=== PATIENT | male | born 1950 | race Caucasian/White ===

== ENCOUNTER 2020-12-08 22:24 | Emergency (ER) | payer MEDICARE ==
[2020-12-08 22:35] VITALS: RESP 18
[2020-12-08] MEDS ORDERED: HYDROmorphone 1 MG/ML 1 ML SYRINGE IVP STA (22:41)
[2020-12-08] MEDS ORDERED: ONDANSETRON 4 MG/2 ML VIAL IVP STA (23:03)
[2020-12-08] MEDS ORDERED: SODIUM CHLORIDE 0.9% 1,000 ML IV STA (23:03)
[2020-12-08] MEDS ORDERED: DIPH,PERTUS(ACELL)TETVAC-LF 0.5 ML VIAL IM ONE (23:03)
[2020-12-08 23:09] LABS: Basophils % (A) 0 %; Eosinophils % (A) 0 %; HCT 44.1 % (39.0-53.0); HGB 14.6 gm/dL (13.0-17.5); Lymphocytes # (A) 0.8 k/uL (1.0-4.8); Lymphocytes % (A) 6 %; MCH 29.5 pg (25.0-35.0); MCV 89.5 fL (80.0-100.0); Mean Platelet Volume 8.2; Monocytes # (A) 0.6 k/uL (0-1.0); Monocytes % (A) 4 %; Neutrophils # (A) 12.3 k/uL (1.3-7.7); Neutrophils % (A) 90 %; Platelet Count 184 k/uL (150-450); RBC 4.93 m/uL (4.30-5.90); RDW 12.9 % (11.5-15.5); WBC 13.8 k/uL (3.8-10.6)
[2020-12-08 23:15] LABS: ALT 36 U/L (4-49); AST 38 U/L (17-59); African American GFR (CKD) >90 (>60 ml/min/1.73 sqM); Albumin 5.1 g/dL (3.5-5.0); Alkaline Phosphatase 56 U/L (38-126); Anion Gap 16 mmol/L; Blood Urea Nitrogen 11 mg/dL (9-20); Calcium 9.4 mg/dL (8.4-10.2); Carbon Dioxide 21 mmol/L (22-30); Chloride 98 mmol/L (98-107); Creatine Kinase 317 U/L (55-170); Glucose 115 mg/dL (74-99); Magnesium 1.8 mg/dL (1.6-2.3); Non-African American GFR(CKD) >90 (>60 ml/min/1.73 sqM); Phosphorus 2.7 mg/dL (2.5-4.5); Potassium 4.4 mmol/L (3.5-5.1); Sodium 135 mmol/L (137-145); Total Bilirubin 0.4 mg/dL (0.2-1.3)
--- NOTE | 2020-12-08 23:24 | XR ---
EXAMINATION TYPE: XR ankle limited RT DATE OF EXAM: 12/08/2020 COMPARISON: NONE HISTORY: Fracture. Fall. TECHNIQUE: Single view FINDINGS: Exam appears to show a anterior dislocation of the talus. There is overlapping of the dista l tibia with the talus. Exam limited by the single lateral view. There is fracture of the distal fibu la. There is plantar calcaneal spurring. There is soft tissue air posterior to the posterior malleolu s. IMPRESSION: Open fracture dislocation of the ankle. Limited exam.
[2020-12-08 23:26] LABS: INR 0.9 (<1.2); Prothrombin Time 9.8 sec (9.0-12.0)
--- NOTE | 2020-12-08 23:37 | ED ---
Lower Extremity Injury HPI - General Chief Complaint: Trauma Stated Complaint: Fall Time Seen by Provider: 12/08/20 22:26 Source: patient, EMS, RN notes reviewed, old records reviewed Mode of arrival: EMS Limitations: no limitations - History of Present Illness Initial Comments: This is a 70-year-old male DF for evaluation. Patient has alcohol intoxicated slip and fall. After this fall he did stand on his right leg and did the leg to give away. Patient has severe right ankle pain. Patient presents by EMS with mild splint on the right lower extremity some decent bleeding with recent no overt bleeding. Patient does not feel lightheaded dizzy or weak. Patient has significant deformity of right lower extremity no other injury noted. Patient d enies headache chest pain shortness breath or abdominal pain MD Complaint: ankle injury (right) -: hour(s) Injury: Ankle: Right Type of Injury: eversion, laceration, other (open fracture and displaced ankle) Place: home Severity: moderate Severity scale (1-10): 6 Improves With: nothing Worsens With: weight bearing Context: fall, direct blow Associated Symptoms: snap/pop sensation, swelling, unable to bear weight - Related Data Allergies Allergy/AdvReac Type Severity Reaction Status Date / Time No Known Allergies Allergy Verified 12/08/20 22:34 Review of Systems ROS Statement: Those systems with pertinent positive or pertinent negative responses have been documented in the HPI. ROS Other: All systems not noted in ROS Statement are negative. Past Medical History Past Medical History: Hypertension History of Any Multi-Drug Resistant Organisms: None Reported Past Surgical History: No Surgical Hx Reported Past Psychological History: No Psychological Hx Reported Smoking Status: Never smoker Past Alcohol Use History: Occasional Past Drug Use History: Marijuana General Exam - General Exam Comments Initial Comments: GCS 15 trachea midline BS equal BL Limitations: no limitations General appearance: alert, in no apparent distress Head exam: Present: atraumatic, normocephalic, normal inspection Eye exam: Present: normal appearance, PERRL, EOMI. Absent: scleral icterus, conjunctival injection, periorbital swelling ENT exam: Present: normal exam, mucous membranes moist Neck exam: Present: normal inspection. Absent: tenderness, meningismus, lymphadenopathy Respiratory exam: Present: normal lung sounds bilaterally. Absent: respiratory distress, wheezes, rales, rhonchi, stridor Cardiovascular Exam: Present: regular rate, normal rhythm, normal heart sounds. Absent: systolic murmur, diastolic murmur, rubs, gallop, clicks GI/Abdominal exam: Present: soft, normal bowel sounds. Absent: distended, tenderness, guarding, rebound, rigid Extremities exam: Present: normal inspection, full ROM, normal capillary refill. Absent: tenderness, pedal edema, joint swelling, calf tenderness Right Hip exam: Present: normal inspection Upper Leg exam: Present: normal inspection Knee exam: Present: normal inspection Ankle exam: Present: tenderness, swelling, laceration (medially 6 cm), def ormity, dislocation Neurovascular tendon exam: Present: no vascular compromise Back exam: Present: normal inspection Neurological exam: Present: alert, oriented X3, CN II-XII intact Psychiatric exam: Present: normal affect, normal mood Skin exam: Present: warm, dry, intact, normal color. Absent: rash Course Vital Signs 12/08/20 12/08/20 22:25 23:23 Temperature 99.7 F H Pulse Rate 95 90 Respiratory 18 18 Rate Blood Pressure 194/111 164/78 O2 Sat by Pulse 94 L 95 Oximetry - Reevaluation(s) Reevaluation #1: 12/09/20 00:11 Medical record is reviewed Reevaluation #2: 12/09/20 00:11 Patient's ankle is reduced here in the ER Reevaluation #3: 12/09/20 00:11 Right ankle splinted placed Reevaluation #4: 12/09/20 00:11 Patient informed of results, questions are answered - Consultations Consultation #1: Spoke with orthopedics on-call recommended transfer Consultation #2: Spoke with Ana Nolan who agree to accept transfer of patient Procedures - Orthopedic Fracture Reduction Fracture #1 Consent Obtained: verbal consent Side: right Fracture Reduction Location: tibia, fibula Analgesia: procedural sedation Technique: direct manipulation, traction/counter-traction Post Reduction X-rays Demonstrate: acceptable reduction Post-Reduction Neuro Exam: intact Post-Reduction Vascular Exam: intact Splint Applied: Yes Patient Tolerated Procedure: well - Orthopedic Joint Reduction Joint #1 Consent Obtained: verbal consent Side: right Joint Reduction Location: ankle Analgesia: none Shoulder Technique Used (if applicable): traction/counter-traction Technique Used: traction/counter-traction Post-Reduction Neuro Exam: intact Post-Reduction Vascular Exam: intact Post Reduction X-Ray Obtained: Yes Post Reduction X-Ray Results: reduced Splint Applied: Yes Patient Tolerated Procedure: well - Procedural Sedation Procedural Sedation Start Time: 22:30 Procedural Sedation Stop Time: 23:00 Indications: fracture/dislocation reduction ASA Class: I Mallampati Airway Score: 1 Preparation: pvc monitor applied, pulse oximeter, capnometry used Other Medications Used: IV Dilaudid Complications: none Interventions: oxygen applied Patient Tolerated Procedure: well Medical Decision Making - Medical Decision Making 30 male DF for evaluation patient Dese for evaluation of severe right ankle pain patient has positive ankle fracture dislocation open, fracture reduced and splinted here in the ER, cleaned. Patient given antibiotics, stable for transferred [facility] - Lab Data Result diagrams: 12/08/20 23:03 12/08/20 23:03 Lab Results 12/08/20 12/08/20 12/08/20 Range/Units 23:03 23:03 23:03 WBC 13.8 H (3.8-10.6) k/uL RBC 4.93 (4.30-5.90) m/uL Hgb 14.6 (13.0-17.5) gm/dL Hct 44.1 (39.0-53.0) % MCV 89.5 (80.0-100.0) fL MCH 29.5 (25.0-35.0) pg MCHC 33.0 (31.0-37.0) g/dL RDW 12.9 (11.5-15.5) % Plt Count 184 (150-450) k/uL MPV 8.2 Neutrophils % 90 % Lymphocytes % 6 % Monocytes % 4 % Eosinophils % 0 % Basophils % 0 % Neutrophils # 12.3 H (1.3-7.7) k/uL Lymphocytes # 0.8 L (1.0-4.8) k/uL Monocytes # 0.6 (0-1.0) k/uL Eosinophils # 0.0 (0-0.7) k/uL Basophils # 0.0 (0-0.2) k/uL PT 9.8 (9.0-12.0) sec INR 0.9 (<1.2) APTT 21.3 L (22.0-30.0) sec Sodium 135 L (137-145) mmol/L Potassium 4.4 (3.5-5.1) mmol/L Chloride 98 (98-107) mmol/L Carbon Dioxide 21 L (22-30) mmol/L Anion Gap 16 mmol/L BUN 11 (9-20) mg/dL Creatinine 0.77 (0.66-1.25) mg/dL Est GFR (CKD-EPI)AfAm >90 (>60 ml/min/1.73 sqM) Est GFR (CKD-EPI)NonAf >90 (>60 ml/min/1.73 sqM) Glucose 115 H (74-99) mg/dL Plasma Lactic Acid Edward (0.7-2.0) mmol/L Calcium 9.4 (8.4-10.2) mg/dL Phosphorus 2.7 (2.5-4.5) mg/dL Magnesium 1.8 (1.6-2.3) mg/dL Total Bilirubin 0.4 (0.2-1.3) mg/dL AST 38 (17-59) U/L ALT 36 (4-49) U/L Alkaline Phosphatase 56 (38-126) U/L Creatine Kinase 317 H (55-170) U/L Troponin I (0.000-0.034) ng/mL Total Protein 8.0 (6.3-8.2) g/dL Albumin 5.1 H (3.5-5.0) g/dL 12/08/20 12/08/20 Range/Units 23:03 23:03 WBC (3.8-10.6) k/uL RBC (4.30-5.90) m/uL Hgb (13.0-17.5) gm/dL Hct (39.0-53.0) % MCV (80.0-100.0) fL MCH (25.0-35.0) pg MCHC (31.0-37.0) g/dL RDW (11.5-15.5) % Plt Count (150-450) k/uL MPV Neutrophils % % Lymphocytes % % Monocytes % % Eosinophils % % Basophils % % Neutrophils # (1.3-7.7) k/uL Lymphocytes # (1.0-4.8) k/uL Monocytes # (0-1.0) k/uL Eosinophils # (0-0.7) k/uL Basophils # (0-0.2) k/uL PT (9.0-12.0) sec INR (<1.2) APTT (22.0-30.0) sec Sodium (137-145) mmol/L Potassium (3.5-5.1) mmol/L Chloride (98-107) mmol/L Carbon Dioxide (22-30) mmol/L Anion Gap mmol/L BUN (9-20) mg/dL Creatinine (0.66-1.25) mg/dL Est GFR (CKD-EPI)AfAm (>60 ml/min/1.73 sqM) Est GFR (CKD-EPI)NonAf (>60 ml/min/1.73 sqM) Glucose (74-99) mg/dL Plasma Lactic Acid Edward 3.7 H* (0.7-2.0) mmol/L Calcium (8.4-10.2) mg/dL Phosphorus (2.5-4.5) mg/dL Magnesium (1.6-2.3) mg/dL Total Bilirubin (0.2-1.3) mg/dL AST (17-59) U/L ALT (4-49) U/L Alkaline Phosphatase (38-126) U/L Creatine Kinase (55-170) U/L Troponin I <0.012 (0.000-0.034) ng/mL Total Protein (6.3-8.2) g/dL Albumin (3.5-5.0) g/dL - EKG Data -: EKG Interpreted by Me (UG shows sinus rhythm 88 NV 176 QRS 100 QTc 423) - Radiology Data Radiology results: report reviewed (X-ray right ankle shows open dislocation, repeat x-ray shows improvement), image reviewed Critical Care Time Critical Care Time: Yes Total Critical Care Time: 31 Disposition Clinical Impression: Fall, Alcohol intoxication, Open fracture of right tibia and fibula Disposition: OTHER INSTITUTION NOT DEFINED Condition: Good Is patient prescribed a controlled substance at d/c from ED?: No Referrals: Marek Rivera III, MD [Primary Care Provider] - 1-2 days - Out of Hospital Transfer - Req. Specs Out of Hospital Transfer - Requested Specifics: Other Emergency Center ([facility]
[2020-12-08 23:59] LABS: Partial Thromboplastin Time 21.3 sec (22.0-30.0)
[2020-12-09 00:42] VITALS: TEMP 98.6
[2020-12-09] MEDS ORDERED: HYDROmorphone 1 MG/ML 1 ML SYRINGE IVP STA (00:42)
--- NOTE | 2020-12-09 00:43 | XR ---
EXAMINATION TYPE: XR ankle limited RT DATE OF EXAM: 12/09/2020 COMPARISON: NONE HISTORY: Post reduction TECHNIQUE: 2 views FINDINGS: There is comminuted fractures of the distal fibula. There is some lateral displacement of t he talus 10 mm. There is no dislocation. I see no definite tibial fracture. There is plantar calcanea l spurring. IMPRESSION: Comminuted fibular fracture with lateral talus displacement. No dislocation.
--- NOTE | 2020-12-09 00:52 | XR ---
EXAMINATION TYPE: XR chest 1V portable DATE OF EXAM: 12/09/2020 COMPARISON: NONE HISTORY: Weakness. Preop TECHNIQUE: Single view FINDINGS: Heart and mediastinum are normal. Lungs are clear. Diaphragm is normal. Bony thorax is inta ct. IMPRESSION: Multiple chest.
[2020-12-09 00:55] VITALS: BP 128/86; PULSE 82
== END 2020-12-09 00:49 | disposition other institution (70) ==
LOC: EC 22:24
DX: S82.451B Displaced comminuted fracture of shaft of right fibula, initial encounter for open fracture type I or II (principal); S82.201B Unspecified fracture of shaft of right tibia, initial encounter for open fracture type I or II; W01.0XXA Fall on same level from slipping, tripping and stumbling without subsequent striking against object, initial encounter; I10 Essential (primary) hypertension; F10.129 Alcohol abuse with intoxication, unspecified; F12.90 Cannabis use, unspecified, uncomplicated
CPT/HCPCS: 99284 ×2; 27752; 99152 ×2; 99153 ×2; 96372; 96365 ×2; 96375 ×2; 96361 ×2; 96376; 36415; 27252; 93005; 80053; 82550; 83605; 83735; 84100; 84484; 85025; 85610; 85730; 73600 ×2; 71045; 90715; J0690; J2405; J1170 ×2